=== PATIENT | male | born 1985 | race Caucasian/White ===

== ENCOUNTER 2022-06-03 13:31 | Emergency (ER) | payer BC ==
[2022-06-03 13:53] VITALS: BP 111/70; PULSE 58; RESP 16; TEMP 98.2
--- NOTE | 2022-06-03 14:07 | XR ---
EXAMINATION TYPE: XR shoulder complete RT DATE OF EXAM: 06/03/2022 COMPARISON: NONE HISTORY: Fall. Pain TECHNIQUE: 3 views FINDINGS: There is comminuted fracture of the midshaft of the right clavicle. There is a persistent i nferior displacement of the lateral major fragment. The glenohumeral joint is intact. Joint spaces ar e normal. IMPRESSION: Displaced comminuted fracture of the clavicle.
--- NOTE | 2022-06-03 14:10 | XR ---
EXAMINATION TYPE: XR clavicle RT DATE OF EXAM: 06/03/2022 COMPARISON: NONE HISTORY: Fall. Pain TECHNIQUE: FINDINGS: There is comminuted midshaft fracture of the right clavicle. There is 100% inferior displac ement of the lateral major fragments 13 mm. No dislocation at the AC joint. IMPRESSION: Acute comminuted displaced clavicle fracture.
[2022-06-03] MEDS ORDERED: CYCLOBENZAPRINE 10 MG TAB PO STA (15:13)
[2022-06-03] MEDS ORDERED: IBUPROFEN 600 MG TAB PO STA (15:13)
[2022-06-03] MEDS ORDERED: ACETAMINOPHEN TAB 500 MG TAB PO STA (15:13)
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
== END 2022-06-03 16:11 | disposition home or self-care (01) ==
LOC: EC 13:31
DX: S42.011A Anterior displaced fracture of sternal end of right clavicle, initial encounter for closed fracture (principal); V18.0XXA Pedal cycle driver injured in noncollision transport accident in nontraffic accident, initial encounter
CPT/HCPCS: 99283